=== PATIENT | female | born 1960 | race Caucasian/White ===

== ENCOUNTER 2017-11-17 11:08 | Observation (INO) | payer BC ==
[~2017-11-17] VITALS: Ht 152.4 cm; Wt 54.4 kg
[2017-11-17] VITALS (9 sets, daily range): BP systolic 98–128; BP diastolic 58–93; Ht 152.4 cm; Wt 54.4 kg
[~2017-11-17 11:08] MED LIST: ESTR-68 PO; LAMO200T46 PO; OXYC-865 PO; [UNRECOGNIZED DRUG - CODE] PO
--- NOTE | 2017-11-17 11:20 | ER Report ---
History and Physical Time Seen By MD: 11:20 Hx. of Stated Complaint: ABD PAIN AND NAUSEA FOR ABOUT 14 HOURS. HAS IBS BUT IT REALLY DOESN'T FEEL LIKE THAT HPI/ROS CHIEF COMPLAINT: Abdominal pain HISTORY OF PRESENT ILLNESS: 57-year-old female patient presents to emergency room with complaint of abdominal pain. Patient states that she's been having pain for probably 40 hours this point time. Patient states her current pain is an 8 out of 10. Patient states it started last night. States the pain seems more on the right side. She states that eating and drinking doesn't seem to make the pain any worse. She states she has had no bowel movements, has been voiding normally. Patient states that anytime she flexes her abdominal muscle pain seems to worsen. She denies having any fevers, chills. She states she has not had any vomiting. Patient did take some Tylenol which does seem to help the pain. Patient states that she has a surgical history of a hysterectomy, however has her appendix and her gallbladder. REVIEW OF SYSTEMS: Respiratory: No cough, no dyspnea. Cardiovascular: No chest pain, no palpitations. Gastrointestinal: As noted above Musculoskeletal: No back pain. Allergies: Coded Allergies: No Known Drug Allergies (Unverified , 12/15/16) Home Meds Reported Medications Estradiol/Norethindrone Acet (ESTRADIOL-NORETH 1-0.5 MG TAB) 1 Each Tablet, 2 EACH PO 12/15/16 Phenelzine Sulfate (NARDIL) 15 Mg Tab, 15 MG PO TID, TAB 12/15/16 Lamotrigine (LAMICTAL) 200 Mg Tablet, 200 MG PO QDAY 12/15/16 Past Medical/Surgical History Patient has a past medical history of IBS, left foot fracture, rare alcohol use , depression. Patient has surgical history of hysterectomy, tonsillectomy. Reviewed Nurses Notes: Yes Hx Substance Use Disorder: No Hx Alcohol Use: Yes (rare) Constitutional Vital Sign - Last 24 Hours 11/17/17 11/17/17 11/17/17 11/17/17 11:08 11:11 11:18 11:23 Temp 98.1 Pulse ??? 78 79 Resp 14 B/P (MAP) 133/81 133/81 (98) Pulse Ox 93 97 O2 Delivery Room Air 11/17/17 11/17/17 11/17/17 11/17/17 11:30 11:38 11:53 12:00 Pulse 74 ??? B/P (MAP) 129/82 (98) 133/83 (100) Pulse Ox 96 11/17/17 11/17/17 11/17/17 11/17/17 12:08 12:23 12:30 12:38 Pulse ? 74 B/P (MAP) 134/84 (101) Pulse Ox 92 11/17/17 11/17/17 11/17/17 11/17/17 12:53 12:58 13:00 13:13 Pulse 80 76 ??? B/P (MAP) 120/78 (92) Pulse Ox 90 89 Physical Exam General Appearance: The patient is alert, has no immediate need for airway protection and no current signs of toxicity. ENT: Tympanic membranes are pearly-caceres, auditory canals are patent, mucous membranes are moist. Respiratory: Chest is non tender, lungs are clear to auscultation. Cardiac: regular rate and rhythm Gastrointestinal: Abdomen is soft and generalized tenderness, patient has pain that radiates to the right lower quadrant throughout the abdomen, no masses, bowel sounds normal. Musculoskeletal: Neck: Neck is supple and non tender. Extremities have full range of motion and are non tender. Skin: No rashes or lesions. DIFFERENTIAL DIAGNOSIS: After history and physical exam differential diagnosis was considered for abdominal pain including but not limited to appendicitis, cholecystitis, gastritis and urinary tract infection. Medical Decision Making Data Points Result Diagram: 11/17/17 1203 11/17/17 1203 Laboratory Hematology Test 11/17/17 11:20 11/17/17 12:03 Urine Color Yellow Urine Clarity Cloudy Urine pH 7.0 pH (4.8-9.5) Urine Specific [place] 1.015 Urine Protein Negative mg/dL (NEGATIVE) Urine Glucose (UA) Negative mg/dL (NEGATIVE) Urine Ketones 20 mg/dL (NEGATIVE) Urine Blood Moderate (NEGATIVE) Urine Nitrite Negative (NEGATIVE) Urine Bilirubin Negative (NEGATIVE) Urine Urobilinogen Negative mg/dL (0.2-1.9) Urine Leukocyte Esterase Negative (NEGATIVE) Urine RBC 5 /HPF (0-2/HPF) Urine WBC 6 /HPF (0-5/HPF) Urine Squamous Epithelial Cells Many /LPF (</=FEW) Urine Amorphous Crystals Few /HPF Urine Bacteria Few /HPF (NONE-FEW) Urine Mucus Few /HPF (NONE-FEW) Urine Yeast (Budding) Few /HPF Red Blood Count 4.71 M/uL (4.17-5.56) Mean Corpuscular Volume 91.2 fL (80.0-96.0) Mean Corpuscular Hemoglobin 30.9 pg (26.0-33.0) Mean Corpuscular Hemoglobin Concent 33.9 g/dL (32.0-36.0) Red Cell Distribution Width 13.1 % (11.5-14.5) Mean Platelet Volume 8.2 fL (7.2-11.1) Neutrophils (%) (Auto) 88.2 % (39.4-72.5) Lymphocytes (%) (Auto) 5.4 % (17.6-49.6) Monocytes (%) (Auto) 6.0 % (4.1-12.4) Eosinophils (%) (Auto) 0.1 % (0.4-6.7) Basophils (%) (Auto) 0.3 % (0.3-1.4) Nucleated RBC Relative Count (auto) 0.0 /100WBC Neutrophils # (Auto) 15.8 K/uL (2.0-7.4) Lymphocytes # (Auto) 1.0 K/uL (1.3-3.6) Monocytes # (Auto) 1.1 K/uL (0.3-1.0) Eosinophils # (Auto) 0.0 K/uL (0.0-0.5) Basophils # (Auto) 0.1 K/uL (0.0-0.1) Nucleated RBC Absolute Count (auto) 0.00 K/uL Sodium Level 139 mmol/L (137-145) Potassium Level 3.5 mmol/L (3.5-5.0) Chloride Level 101 mmol/L (98-107) Carbon Dioxide Level 23 mmol/L (22-31) Blood Urea Nitrogen 13 mg/dl (7-18) Creatinine 0.80 mg/dl (0.52-1.04) Glomerular Filtration Rate Calc > 60.0 Random Glucose 118 mg/dl (75-110) Calcium Level 9.9 mg/dl (8.4-10.2) Total Bilirubin 0.4 mg/dl (0.2-1.3) Aspartate Amino Transf (AST/SGOT) 24 U/L (0-35) Alanine Aminotransferase (ALT/SGPT) 20 U/L (0-56) Alkaline Phosphatase 73 U/L (0-126) Total Protein 8.0 gm/dl (6.3-8.2) Albumin 4.5 g/dl (3.5-5.0) Amylase Level 99 U/L (0-110) Lipase 61 U/L (23-300) Chemistry Test 11/17/17 11:20 11/17/17 12:03 Urine Color Yellow Urine Clarity Cloudy Urine pH 7.0 pH (4.8-9.5) Urine Specific [place] 1.015 Urine Protein Negative mg/dL (NEGATIVE) Urine Glucose (UA) Negative mg/dL (NEGATIVE) Urine Ketones 20 mg/dL (NEGATIVE) Urine Blood Moderate (NEGATIVE) Urine Nitrite Negative (NEGATIVE) Urine Bilirubin Negative (NEGATIVE) Urine Urobilinogen Negative mg/dL (0.2-1.9) Urine Leukocyte Esterase Negative (NEGATIVE) Urine RBC 5 /HPF (0-2/HPF) Urine WBC 6 /HPF (0-5/HPF) Urine Squamous Epithelial Cells Many /LPF (</=FEW) Urine Amorphous Crystals Few /HPF Urine Bacteria Few /HPF (NONE-FEW) Urine Mucus Few /HPF (NONE-FEW) Urine Yeast (Budding) Few /HPF White Blood Count 17.9 k/uL (4.5-11.0) Red Blood Count 4.71 M/uL (4.17-5.56) Hemoglobin 14.6 g/dL (12.0-16.0) Hematocrit 43.0 % (34.0-47.0) Mean Corpuscular Volume 91.2 fL (80.0-96.0) Mean Corpuscular Hemoglobin 30.9 pg (26.0-33.0) Mean Corpuscular Hemoglobin Concent 33.9 g/dL (32.0-36.0) Red Cell Distribution Width 13.1 % (11.5-14.5) Platelet Count 322 K/uL (150-450) Mean Platelet Volume 8.2 fL (7.2-11.1) Neutrophils (%) (Auto) 88.2 % (39.4-72.5) Lymphocytes (%) (Auto) 5.4 % (17.6-49.6) Monocytes (%) (Auto) 6.0 % (4.1-12.4) Eosinophils (%) (Auto) 0.1 % (0.4-6.7) Basophils (%) (Auto) 0.3 % (0.3-1.4) Nucleated RBC Relative Count (auto) 0.0 /100WBC Neutrophils # (Auto) 15.8 K/uL (2.0-7.4) Lymphocytes # (Auto) 1.0 K/uL (1.3-3.6) Monocytes # (Auto) 1.1 K/uL (0.3-1.0) Eosinophils # (Auto) 0.0 K/uL (0.0-0.5) Basophils # (Auto) 0.1 K/uL (0.0-0.1) Nucleated RBC Absolute Count (auto) 0.00 K/uL Glomerular Filtration Rate Calc > 60.0 Calcium Level 9.9 mg/dl (8.4-10.2) Total Bilirubin 0.4 mg/dl (0.2-1.3) Aspartate Amino Transf (AST/SGOT) 24 U/L (0-35) Alanine Aminotransferase (ALT/SGPT) 20 U/L (0-56) Alkaline Phosphatase 73 U/L (0-126) Total Protein 8.0 gm/dl (6.3-8.2) Albumin 4.5 g/dl (3.5-5.0) Amylase Level 99 U/L (0-110) Lipase 61 U/L (23-300) Urinalysis Test 11/17/17 11:20 Urine Color Yellow Urine Clarity Cloudy Urine pH 7.0 pH (4.8-9.5) Urine Specific [place] 1.015 Urine Protein Negative mg/dL (NEGATIVE) Urine Glucose (UA) Negative mg/dL (NEGATIVE) Urine Ketones 20 mg/dL (NEGATIVE) Urine Blood Moderate (NEGATIVE) Urine Nitrite Negative (NEGATIVE) Urine Bilirubin Negative (NEGATIVE) Urine Urobilinogen Negative mg/dL (0.2-1.9) Urine Leukocyte Esterase Negative (NEGATIVE) Urine RBC 5 /HPF (0-2/HPF) Urine WBC 6 /HPF (0-5/HPF) Urine Squamous Epithelial Cells Many /LPF (</=FEW) Urine Amorphous Crystals Few /HPF Urine Bacteria Few /HPF (NONE-FEW) Urine Mucus Few /HPF (NONE-FEW) Urine Yeast (Budding) Few /HPF EKG/Imaging Imaging EXAMINATION: CT abdomen and pelvis with contrast COMPARISON: None. HISTORY: Right lower quadrant abdominal pain. PROCEDURE: Multiplanar contrast enhanced CT of the abdomen and pelvis with 75 mL intravenous Isovue 370. One of the following dose optimization techniques was utilized in the performance of this exam: Automated exposure control; adjustment of the mA and/or kV according to the patient's size; or use of an iterative reconstruction technique. Specific details can be referenced in the facility's radiology CT exam operational policy. FINDINGS: Visualized thorax: No evidence of acute disease within the visualized lower thorax. Liver: Negative. Gallbladder and biliary system: Negative Spleen: Negative. Pancreas: Negative. Adrenal glands: Negative. Kidneys and bladder: No renal mass or evidence of an obstructive uropathy. Urinary bladder is unremarkable. Vessels: Portal venous system and IVC are unremarkable. Minimal aortoiliac atherosclerosis. No abdominal aortic aneurysm. Bowel and mesentery: 3.3 x 0.6 x 0.7 cm calcified appendicolith in the proximal and middle thirds of the appendix. The surrounding appendix is dilated to 1.7 cm and there is prominent mucosal hyperemia and periappendiceal inflammation. There is a questionable small region of wall discontinuity adjacent to the proximal portion of the appendicolith and microperforation cannot be excluded. No extraluminal gas or fluid collection. Stomach is within normal limits. No small bowel obstruction. Small amount of stool in the colon. There is a short segment of mid ostomy: Wall inflammation; this is adjacent to the inflamed appendix and is favored to be reactive. No other evidence of acute bowel inflammation. There are a few colonic diverticula. Pelvic organs: Hysterectomy. No adnexal mass. Lymph nodes: No adenopathy. Free air/free fluid: None. Abdominal wall and osseous structures: Tiny fat-containing umbilical hernia. Osseous structures are within normal limits. IMPRESSION: 1. Acute appendicitis with possible microperforation. No evidence of abscess or pneumoperitoneum at this time. 2. Additional nonacute findings as described above. Results were discussed with STEF GUTIERRES at 11/17/2017 12:56 PM. Report Dictated By: Leandro Aponte MD at 11/17/2017 12:49 PM Report E-Signed By: Leandro Aponte MD at 11/17/2017 12:57 PM ED Course/Re-evaluation ED Course Patient was admitted to exam room, history and physical were obtained. Differential diagnoses were considered. On examination lungs were clear, heart was regular, patient did have some abdominal tenderness. Patient seemed to have most of her tenderness in the right lower quadrant. We'll add palpated in the left upper quadrant as well as the left lower quadrant patient stated that she had pain that radiated to the right lower quadrant. An IV was started, a CBC, CMP, urinalysis was done. Patient had an elevated white count of 17,000 with a left shift. CMP and urinalysis were unremarkable. CT scan of the abdomen and pelvis was done which showed an acute appendicitis. I discussed the case through the circulating nurse with Dr. Sherman, general surgeon, who had just started a six-hour procedure. Due to that patient was admitted to the floor in preparation for surgery later this evening. I discussed this with the patient and her and they verbalized understanding and agreement with plan. Decision to Disposition Date: November 17, 2017 Decision to Disposition Time: 13:07 Depart Departure Latest Vital Signs Vital Signs Date Time Temp Pulse Resp B/P (MAP) Pulse Ox O2 Delivery O2 Flow Rate FiO2 11/17/17 13:13 ??? 11/17/17 13:00 120/78 (92) 11/17/17 12:58 89 11/17/17 11:11 98.1 14 Room Air Impression: Primary Impression: Appendicitis Condition: Condition Unchanged Disposition: Admitted from ER Problem Qualifiers Primary Impression: Appendicitis Appendicitis type: acute appendicitis Acute appendicitis type: with generalized peritonitis Qualified Codes: K35.2 - Acute appendicitis with generalized peritonitis STEF GUTIERRES November 17, 2017 11:20
[2017-11-17] MEDS ORDERED: NS(*) 0.9% 1000 ML BAG 1,000 ML IV ONE (11:44)
[2017-11-17] MEDS ORDERED: ONDANSETRON 4 MG/2 ML VIAL IVP ONE (11:45)
[2017-11-17] MEDS ORDERED: MORPHINE 2 MG/ML SYR IVP ONE (11:45)
[2017-11-17] MEDS ORDERED: IOPAMIDOL 76% 75 ML INFUS BTL 75 ML ONE (11:58)
[2017-11-17 12:14] LABS: PLATELET COUNT, AUTOMATED 322 K/uL (150-450)
--- NOTE | 2017-11-17 13:02 | RADIOLOGY IMAGING REPORT ---
[place] [facility] [place] Kalie Beas[place] : 1960 MR: [id number] V: [id number] EXAM DATE: [id number] ORDERING PHYSICIAN: STEF GUTIERRES TECHNOLOGIST: [place] [facility] [place] Kalie Beasley : 1960 Visit/Account:[id number] Date of Sevice: 11/17/2017 EXAMINATION: CT abdomen and pelvis with contrast COMPARISON: None. HISTORY: Right lower quadrant abdominal pain. PROCEDURE: Multiplanar contrast enhanced CT of the abdomen and pelvis with 75 mL intravenous Isovue 3 70. One of the following dose optimization techniques was utilized in the performance of this exam: A utomated exposure control; adjustment of the mA and/or kV according to the patient's size; or use of an iterative reconstruction technique. Specific details can be referenced in the facility's radiolo gy CT exam operational policy. FINDINGS: Visualized thorax: No evidence of acute disease within the visualized lower thorax. Liver: Negative. Gallbladder and biliary system: Negative Spleen: Negative. Pancreas: Negative. Adrenal glands: Negative. Kidneys and bladder: No renal mass or evidence of an obstructive uropathy. Urinary bladder is unrema rkable. Vessels: Portal venous system and IVC are unremarkable. Minimal aortoiliac atherosclerosis. No abdomi nal aortic aneurysm. Bowel and mesentery: 3.3 x 0.6 x 0.7 cm calcified appendicolith in the proximal and middle thirds of the appendix. The surrounding appendix is dilated to 1.7 cm and there is prominent mucosal hyperemia and periappendiceal inflammation. There is a questionable small region of wall discontinuity adjacent to the proximal portion of the appendicolith and microperforation cannot be excluded. No extralumina l gas or fluid collection. Stomach is within normal limits. No small bowel obstruction. Small amount of stool in the colon. Ther e is a short segment of mid ostomy: Wall inflammation; this is adjacent to the inflamed appendix and is favored to be reactive. No other evidence of acute bowel inflammation. There are a few colonic div erticula. Pelvic organs: Hysterectomy. No adnexal mass. Lymph nodes: No adenopathy. Free air/free fluid: None. Abdominal wall and osseous structures: Tiny fat-containing umbilical hernia. Osseous structures are w ithin normal limits. IMPRESSION: 1. Acute appendicitis with possible microperforation. No evidence of abscess or pneumoperitoneum at t his time. 2. Additional nonacute findings as described above. Results were discussed with STEF GUTIERRES at 11/17/2017 12:56 PM. Report Dictated By: Leandro Aponte MD at 11/17/2017 12:49 PM Report E-Signed By: Leandro Aponte MD at 11/17/2017 12:57 PM WSN:[id number]
[2017-11-17] MEDS ORDERED: ERTAPENEM(*) 1 GM VIAL 1 GM in NS(*) 0.9% 100 ML ADDVANT BAG 100 ML IVPB ONE (13:10)
[2017-11-17] MEDS ORDERED: ONDANSETRON 4 MG/2 ML VIAL IVP PRN (13:55)
[2017-11-17] MEDS ORDERED: NS(*) 0.9% 1000 ML BAG 1,000 ML IV PRN ×2 (13:55→20:24)
[2017-11-17] MEDS ORDERED: NALOXONE HCL 0.4 MG/ML VIAL IVP PRN (14:00)
[2017-11-17] MEDS ORDERED: MORPHINE SULFATE 30 MG PCA IV PRN (14:00)
[2017-11-17] MEDS ORDERED: LIDOCAINE MPF 1% 5 ML VIAL ONE (17:05)
[2017-11-17] MEDS ORDERED: ONDANSETRON 4 MG/2 ML VIAL ONE (17:05)
[2017-11-17] MEDS ORDERED: ROCURONIUM BROM 10 MG/ML 10 ML ONE (17:05)
[2017-11-17] MEDS ORDERED: DEXAMETHASONE SOD 4 MG/ML VIAL ONE (17:05)
[2017-11-17] MEDS ORDERED: PROPOFOL EMUL(*) 10MG/ML 20 ML 20 ML ONE (17:05)
[2017-11-17] MEDS ORDERED: SUGAMMADEX SOD 200 MG/2 ML SDV ONE (17:05)
[2017-11-17] MEDS ORDERED: METOCLOPRAMIDE 10 MG/2 ML SDV ONE (17:05)
[2017-11-17] MEDS ORDERED: FAMOTIDINE(*) 20MG/50ML PREMIX 50 ML IVPB ONE (17:18)
[2017-11-17] MEDS ORDERED: NORMOSOL R SOLN(*) 1000 ML BAG 1,000 ML IV ONE (17:18)
[2017-11-17] MEDS ORDERED: fentaNYL CITR 100 MCG/2 ML AMP ONE ×2 (18:58→20:49)
--- NOTE | 2017-11-17 19:03 | Gen Surgery History & Physical ---
History of Present Illness Chief Complaint Abdominal pain History of Present Illness 57yo female presents to the ER with RLQ abdominal pain that started yesterday at around noon. She has noticed decreased appetite with some chills but no fevers. No diarrhea or constipation. She was found to have a leukocytosis in the ER of almost 18K and CT c/w appendicitis with a large appendicolith. I was consulted and so she was admitted and started on IV abx and consented for surgery. History Problems: (1) H/O abdominal hysterectomy Status: Chronic (2) History of tonsillectomy and adenoidectomy Status: Chronic (3) Depression Status: Chronic Home Meds Reported Medications Estradiol/Norethindrone Acet (ESTRADIOL-NORETH 1-0.5 MG TAB) 1 Each Tablet, 2 EACH PO 12/15/16 Phenelzine Sulfate (NARDIL) 15 Mg Tab, 15 MG PO TID, TAB 12/15/16 Lamotrigine (LAMICTAL) 200 Mg Tablet, 200 MG PO QDAY 12/15/16 Allergies: Coded Allergies: No Known Drug Allergies (Unverified , 12/15/16) Review of Systems All Systems Reviewed/Normal: Yes, Except as Noted Constitutional: Chills Gastrointestinal: Abdominal Pain Exam General Appearance: Alert, Awake, No Acute Distress, Afebrile Neuro: No Gross deficits Eyes: PERRLA GI: Other (Soft, RLQ TTP with focal peritoneal irritation, no palpable phelgmon ) Extremities: Warm, Perfused Medical Decision Making Data Points Result Diagram: 11/17/17 1203 11/17/17 1203 Assessment and Plan Problems: (1) Appendicitis Status: Acute Assessment & Plan: 11/17/17: Admit, NPO, IV fluids, IV abx, to OR this evening for lap appy. I have explained appendicitis and its treatment with the patient in detail. I have recommended, in addition to IV abx, lap appy and I have explained the procedure, alternatives, risks, and expected recovery and her questions have been answered. I have explained that if surgery is simple and inflammation is limited then she may be able to go home tomorrow but if the inflammation is significant or her appendix is perforated or has an abscess then she may need to remain in the hospital for several days on IV abx. She seems to understand this discussion and she wishes to proceed with this plan including surgery. Condition Stable. Time Spent: < 30 min Venous Thromboembolism VTE Risk Physician Assess for VTE Risk: Yes Patient's VTE Risk: Low VTE Diagnostic Test 2 Days Prior to Admit: No Antithrombotics Is Pt On Any Antithrombotics?: No Prophylaxis Tx Contraindicated Pharmacological Contraindicati: Surgical Contraindication Problem Qualifiers (1) Appendicitis: Appendicitis type: acute appendicitis Acute appendicitis type: with generalized peritonitis Qualified Codes: K35.2 - Acute appendicitis with generalized peritonitis OLMAN BERNARDO MD November 17, 2017 19:03
[2017-11-17] MEDS ORDERED: PHENYLEPHRINE 10 MG/1 ML VIAL ONE (19:28)
[2017-11-17] MEDS ORDERED: MORPHINE 2 MG/ML SYR IVP PRN (20:25)
[2017-11-17] MEDS ORDERED: FLUSH 10 ML SYR IVP PRN (20:25)
--- NOTE | 2017-11-17 20:39 | Post Operative Progress Note ---
Post Operative Progress Note Date: November 17, 2017 Time: 20:28 Surgeon: Whit Dictation number: [id number] Anesthesia: GETA by Dr. Garcia Pre-Op Diagnosis: Acute Appendicitis Post-Op Diagnosis: LESLIE Findings: C/W dx Procedure(s): Lap appy Specimen Removed:(May be N/A): Appendix Complications: None Fluids: See anesthesia record Estimated Blood Loss: Minimal Date OP Note Dictated: November 17, 2017 Time OP Note Dictated: 20:31 OLMAN BERNARDO MD November 17, 2017 20:39
[2017-11-17] MEDS: PHENELZINE SULFATE 15 MG PO SCH (21:00)
[2017-11-17] MEDS: FAMOTIDINE 20 MG TAB PO SCH (21:30)
[2017-11-17] MEDS: DOCUSATE SODIUM 100 MG CAP PO SCH (21:30)
[2017-11-17] MEDS: ONDANSETRON 4 MG/2 ML VIAL IVP PRN (21:32)
--- NOTE | 2017-11-17 22:08 | OPERATIVE REPORT 1 ---
EVENT DATE: November 17, 2017 SURGEON: Vitaliy Sherman MD ANESTHESIOLOGIST: Vitaliy Garcia MD ANESTHESIA: General endotracheal anesthesia. PREOPERATIVE DIAGNOSIS Acute appendicitis. POSTOPERATIVE DIAGNOSIS Acute appendicitis. PROCEDURE PERFORMED Laparoscopic appendectomy. COMPLICATIONS None. CONDITION Stable. BLOOD LOSS Minimal. FINDINGS The patient had an inflamed appendix, but no perforation or abscess. INDICATIONS This is a 57-year-old female who presented to the Emergency Room with a one-day history of right lower quadrant abdominal pain, a white count of almost 18,000, and CT scan consistent with appendicitis. She was admitted and consented for laparoscopic appendectomy. DESCRIPTION OF PROCEDURE The patient was brought to the operating room and placed supine on the operating table. General endotracheal anesthesia was administered, and her abdomen was prepped and draped in a sterile fashion. A timeout was completed. I injected the infraumbilical skin with 0.5% ropivacaine plain. I made a curvilinear smiley face incision in the infraumbilical rim and dissected through the dermis and subcutaneous fat. I identified the midline fascia, made a vertical incision in the midline fascia, grasped the fascial edges with Shabnam clamps, and then bluntly entered the peritoneal cavity with my finger. I placed two interrupted 0 Vicryl sutures transversely through the vertical fascial defect, one cephalad and one caudad, and then inserted a 12 mm Anselmo- type port into this wound and secured it in place with sutures. I insufflated the abdomen to a pressure of 15 mmHg and inserted a 5 mm 30-degree angled scope through this port. Next, I placed a 5 mm suprapubic port and a 5 mm left lower quadrant port. Thorough inspection of the abdominal cavity initially did not reveal any evidence of gross abnormalities. There were no suspicious tumors, peritoneal seeding, or purulent fluid. I identified the cecum, and with the patient in Trendelenburg and planed towards her left, I identified the appendix. The appendix was in the pericolic gutter and behind the peritoneum, and it was quite attached. I started at the base and divided the peritoneum along the appendix between the appendix and the ascending colon. I got around the end of the appendix and was able to free this up. I then divided the mesoappendix with the Harmonic scalpel. Ultimately, I was able to get down to the base of the appendix and divided the base of the appendix flush with the cecum with the Endo SUKH stapler with a blue load. I made sure I stayed out of the way of the ileocecal valve and the terminal ileum. The appendix was placed in a surgical specimen retrieval bag and removed from the abdomen through the umbilical port site. I irrigated and dried the right lower quadrant and made sure I removed all the irrigation fluid. I inspected the divided mesoappendix staple line, and there was no bleeding. The staple line was intact and flush with the cecum and did not interfere with the terminal ileum. I then suctioned a little bit of fluid out of the pelvis, and then I removed the 5 mm ports, inspected the peritoneal surfaces for bleeding, and there was none. I removed the camera, followed by the umbilical port, and then placed a [id number] 0 Vicryl suture transversely through the vertical fascial defect and tied all three of these down with good reapproximation of the fascial edges and no remaining fascial defect. I then closed the skin at each port site with 4-0 Monocryl in running subcuticular suture. Skin was cleaned and dried, and Steri- Strips were applied, followed by sterile surgical dressings. The patient was awakened and extubated in the operating room and transported to the recovery room in stable condition having tolerated the procedure without any apparent problems. CELINA
[2017-11-18] VITALS: BP 95/58
[2017-11-18 00:30] VITALS: BP 102/54
[2017-11-18 01:00] VITALS: BP 96/54
[2017-11-18 02:00] VITALS: BP 90/51
[2017-11-18 03:10] VITALS: BP 105/54
[2017-11-18] MEDS ORDERED: ERTAPENEM(*) 1 GM VIAL 1 GM in NS(*) 0.9% 100 ML ADDVANT BAG 100 ML IVPB ONE (07:30)
[2017-11-18 07:34] VITALS: BP 94/55
[2017-11-18] MEDS ORDERED: DOCU-202 PO (08:19)
[2017-11-18] MEDS ORDERED: PER PO (08:19)
--- NOTE | 2017-11-18 08:21 | Short(Outpt) Discharge Summary ---
Discharge Summary Reason for Hosp/Final Diag: (1) Appendicitis Status: Acute Hospital Course & Plan: 11/17/17: Admit, NPO, IV fluids, IV abx, to OR this evening for lap appy. I have explained appendicitis and its treatment with the patient in detail. I have recommended, in addition to IV abx, lap appy and I have explained the procedure, alternatives, risks, and expected recovery and her questions have been answered. I have explained that if surgery is simple and inflammation is limited then she may be able to go home tomorrow but if the inflammation is significant or her appendix is perforated or has an abscess then she may need to remain in the hospital for several days on IV abx. She seems to understand this discussion and she wishes to proceed with this plan including surgery. 11/18/17: POD#1 s/p lap appy. Doing well. Feeling much better than before surgery. Pain well controlled. Tolerating diet. Will d/c to home this morning. Departure Discharge to: Home, Self Care Discharge Instructions Home Meds Active Scripts Oxycodone/Acetaminophen (OXYCODONE/ACETAMINOPHEN 5MG/325 MG) 5 Mg/325 Mg Tab, 1- 2 TAB PO Q4H Y for MODERATE PAIN, #30 TAB 0 Refills Prov:OLMAN BERNARDO MD 11/18/17 Docusate Sodium (DOCUSATE SODIUM) 100 Mg Capsule, 1 CAP PO BID, #30 CAPSULE 0 Refills Prov:OLMAN BERNARDO MD 11/18/17 Reported Medications Estradiol/Norethindrone Acet (ESTRADIOL-NORETH 1-0.5 MG TAB) 1 Each Tablet, 2 EACH PO 12/15/16 Phenelzine Sulfate (NARDIL) 15 Mg Tab, 15 MG PO TID, TAB 12/15/16 Lamotrigine (LAMICTAL) 200 Mg Tablet, 200 MG PO QDAY 12/15/16 Diet: Regular Activity: As Tolerated Special Instructions: You may remove the white surgical dressings on 11/19/17, then you can shower. After showering, leave the incisions open to air but leave the steristrips in place until they fall off on their own. Do not immerse the incisions for 2 weeks. Problem Qualifiers (1) Appendicitis: Appendicitis type: acute appendicitis Acute appendicitis type: with generalized peritonitis Qualified Codes: K35.2 - Acute appendicitis with generalized peritonitis OLMAN BERNARDO MD November 18, 2017 08:21
[2017-11-18] MEDS ORDERED: lamoTRIgine 100 MG TAB PO SCH (09:00)
[2017-11-18] MEDS: DOCUSATE SODIUM 100 MG CAP PO SCH (09:11)
[2017-11-18] MEDS: FAMOTIDINE 20 MG TAB PO SCH (09:12)
[2017-11-18] MEDS: PHENELZINE SULFATE 15 MG PO SCH (09:12)
[2017-11-18] MEDS: ONDANSETRON 4 MG/2 ML VIAL IVP PRN (09:18)
== END 2017-11-18 08:17 | disposition home or self-care (01) ==
LOC: ER 11:09 → INTOOBSV 13:26 → MED 13:26
PROVIDERS: ADMIT Surgery; ATTEND Surgery
DX: K35.2 Acute appendicitis with generalized peritonitis (principal); K58.9 Irritable bowel syndrome, unspecified; F32.9 Major depressive disorder, single episode, unspecified; Z90.710 Acquired absence of both cervix and uterus
CPT/HCPCS: 36415; 44970; 74177; 81001; 82150; 83690; 85025; 88304; G0378; J1100; J1335; J2001; J2270; J2405; J2704; J3010; J3490; J7030; J7050; Q9967; 82040; 82247; 82310; 82374; 82435; 82565; 82947; 84075; 84132; 84155; 84295; 84450; 84460; 84520; J2370; J2765

== ENCOUNTER → 2018-03-08 | Outpatient (CLI) | payer BC ==
[2017-11-17 19:47] VITALS: BMI 23.4
[~2018-03-08] MED LIST changes: +CYCL10TA29 PO; +DOCU-202 PO; +ESTR2TAB26 PO; +META800T18 PO; +PER PO
== END ==
LOC: LAB 13:48
PROVIDERS: ATTEND Emergency Medicine
DX: R82.90 Unspecified abnormal findings in urine (principal)
CPT/HCPCS: 81001

== ENCOUNTER → 2018-03-09 | Outpatient (CLI) | payer BC ==
[2017-11-17 19:47] VITALS: BMI 23.4
== END ==
LOC: LAB 08:01
PROVIDERS: ATTEND Emergency Medicine
DX: M85.80 Other specified disorders of bone density and structure, unspecified site (principal); M81.0 Age-related osteoporosis without current pathological fracture
CPT/HCPCS: 36415; 82306; 82310; 82465; 82607; 83718; 83970; 84443; 84478